=== PATIENT | male | born 1995 | race African-American/Black ===

== ENCOUNTER 2017-05-08 11:21 | Emergency (ER) | payer SELFPAY ==
--- NOTE | 2017-05-08 12:22 | ED ---
Skin Complaint - HPI Summary HPI Summary: 21 male presents with complaints of left buttock/rectal pain that began ~3 days ago. Patient states he had similar pain approximately 2 years ago when he had surgery on an abscess by Dr Robertson. Patient denies any new discharge besides the intermittent specks of blood he sometimes has when wiping, that he states is chronic. Patient admits to feeling a "cyst" and it is very tender to touch. It hurts when he sits down. No fever/chills or feeling of illness. Denies any other abscess or skin complaints. No trouble going to the bathroom besides it causes him pain. No PMHx. Has been taking ibuprofen with little relief. States pain has increased since it began 3 days ago. Denies history of MRSA. State when he palpates the area of pain, he feels his left upper leg goes slightly numb. - History of Current Complaint Chief Complaint: EDRashSkinAbscess Time Seen by Provider: 05/08/17 11:43 Stated Complaint: LT BUTTOCKS PAIN Hx Obtained From: Patient Onset/Duration: Started Days Ago, Still Present, Worse Since Skin Exposure Onset/Duration: Days Ago Timing: Constant Onset Severity: Moderate Current Severity: Moderate Pain Intensity: 7 Pain Scale Used: 0-10 Numeric Skin Location: Other: - left buttock, rectal area Character: Swelling, Pain, Redness Aggravating Symptom(s): Nothing Alleviating Symptom(s): Nothing Associated Signs & Symptoms: Negative - Allergy/Home Medications Allergies/Adverse Reactions: Allergies Allergy/AdvReac Type Severity Reaction Status Date / Time No Known Allergies Allergy Verified 05/08/17 11:33 PMH/Surg Hx/FS Hx/Imm Hx Endocrine/Hematology History: Denies: Hx Anticoagulant Therapy, Hx Diabetes, Hx Thyroid Disease Cardiovascular History: Denies: Hx Hypertension, Hx Pacemaker/ICD Respiratory History: Denies: Hx Asthma, Hx Chronic Obstructive Pulmonary Disease (COPD) GI History: Denies: Hx Ulcer, Other GI Disorders History: Denies: Hx Renal Disease, Other Problems/Disorders Sensory History: Reports: Hx Contacts or Glasses Denies: Hx Cataracts, Hx Glaucoma, Hx Hearing Aid Opthamlomology History: Reports: Hx Contacts or Glasses Denies: Hx Cataracts, Hx Glaucoma Neurological History: Denies: Hx Dementia, Hx Seizures Psychiatric History: Denies: Hx Substance Abuse - Cancer History Hx Chemotherapy: No - Surgical History Surgery Procedure, Year, and Place: Cyst removal left buttock Hx Anesthesia Reactions: No - Immunization History Immunizations Up to Date: Yes Infectious Disease History: No Infectious Disease History: Denies: Hx Clostridium Difficile, Hx Hepatitis, Hx Human Immunodeficiency Virus (HIV), Hx Shingles, Hx Tuberculosis, History Other Infectious Disease, Traveled Outside the [place] in Last 30 Days - Family History Known Family History: Positive: None - Social History Alcohol Use: Occasionally Substance Use Type: Reports: None Smoking Status (MU): Never Smoked Tobacco Type: Cigarettes Have You Smoked in the Last Year: No Review of Systems Constitutional: Negative Cardiovascular: Negative Respiratory: Negative Gastrointestinal: Negative Musculoskeletal: Negative Positive: Other - pain, cyst buttock All Other Systems Reviewed And Are Negative: Yes Physical Exam Triage Information Reviewed: Yes Vital Signs On Initial Exam: Initial Vitals Temp Pulse Resp BP Pulse Ox 98.1 F 67 16 152/82 98 05/08/17 11:33 05/08/17 11:33 05/08/17 11:33 05/08/17 11:33 05/08/17 11:33 Vital Signs Reviewed: Yes Appearance: Positive: Well-Appearing, Pain Distress - mild with changing positions Skin: Positive: Warm, Skin Color Reflects Adequate Perfusion, Dry, Erythema @ - at intergluteal cleft area on left side, superior. very tender to palpation, firm in areas, no drainage noted, appears to possibly be a fistula. scars noted in same area due to previous surgery 2 years ago. no significant surrounding cellulitis, or easily palpated abscess.. Negative: Jaundiced Head/Face: Positive: Normal Head/Face Inspection Eyes: Positive: Conjunctiva Clear ENT: Positive: Hearing grossly normal Neck: Positive: Supple, Nontender, No Lymphadenopathy Respiratory/Lung Sounds: Positive: Clear to Auscultation, Breath Sounds Present. Negative: Rales, Rhonchi, Wheezes Cardiovascular: Positive: Normal, RRR, Pulses are Symmetrical in both Upper and Lower Extremities. Negative: Murmur, Rub Abdomen Description: Positive: Nontender, Soft Bowel Sounds: Positive: Present Musculoskeletal: Positive: Normal, Strength/ROM Intact Neurological: Positive: Normal, Sensory/Motor Intact - sensation intact, Alert, Oriented to Person Place, Time, CN Intact II-III, Reflexes Intact, NV Bundle Intact Distally, Normal Gait Psychiatric: Positive: Affect/Mood Appropriate Diagnostics - Vital Signs Vital Signs Temp Pulse Resp BP Pulse Ox 05/08/17 11:47 98.1 F 67 16 152/82 98 05/08/17 11:33 98.1 F 67 16 152/82 98 - Laboratory Lab Statement: Any lab studies that have been ordered have been reviewed, and results considered in the medical decision making process. Course/Dx - Course Course Of Treatment: given naproxen for pain. held off on labs and imaging until spoke with surgery. no concern for sepsis at this time due to being afebrile and not feeling ill. symptoms just began PE findings do not appear to be of severity at this time. Due to location and prior consultation by Dr Robertson office had surgery consult, called Dr Hastings at 12:45pm. Feng HILTON determined patient should be placed on oral anitbioics and follow up in office tomorrow a 2:15, non surgical at this time. Aware of worsening signs and symptoms. Pain management and antibiotics at home. - Differential Diagnoses - Skin Complaint Differential Diagnoses: Abscess, Cellulitis, MRSA, Other - fistula, pionidal cyst - Diagnoses Provider Diagnoses: Cellulitis and abscess of buttock Discharge - Discharge Plan Condition: Stable Disposition: HOME Prescriptions: Cephalexin CAP* [Keflex CAP*] 500 mg PO TID #30 cap HYDROcodone/ACETAMIN 5-325 MG* [Canaan 5-325 TAB*] 1 tab PO Q4H PRN #10 tab MDD 3 PRN Reason: Pain Patient Education Materials: Cellulitis (ED), Pilonidal Cyst (ED), Rectal Abscess (ED), Warm Compress or Soak (ED) Referrals: Jo-Ann Can MD [Primary Care Provider] - Israel Hastings MD [Medical Doctor] - Additional Instructions: Apply warm compresses as often as possible. Be sure to keep clean and dry, avoid moisture. Take oral antibiotics and pain medication as directed. You can supplement with ibuprofen in between doses if desired. take with food and do not drive while taking narcotic. Follow up with surgery tomorrow at 2:15pm for evaluation. IF symptoms worsen or you develop worsening symptoms such as fever, drainage, feeling of illness etc, please seek medical attention promptly.
[2017-05-08] MEDS ORDERED: Naproxen TAB* 250 MG PO ONE (13:11)
[2017-05-08 13:57] VITALS: BP 127/77
== END 2017-05-08 13:57 | disposition home or self-care (01) ==
LOC: ED 11:21
DX: L02.31 Cutaneous abscess of buttock (principal); L03.90 Cellulitis, unspecified
CPT/HCPCS: 99282; A9270-GY

== ENCOUNTER 2017-10-02 13:26 | Emergency (ER) | payer SELFPAY ==
[2017-10-02 17:06] LABS: ABS Basophils 0 10^3/ul (0-0.2); ABS Eosinophils 0.4 10^3/ul (0-0.6); ABS Lymphocytes 2.4 10^3/ul (1.0-4.8); ABS Monocytes 0.5 10^3/ul (0-0.8); ABS Neutrophils 2.5 10^3/ul (1.5-7.7); ABS Nucleated RBC 0.01 10^3/ul; Eosinophil % 6.2 % (0-6); Hematocrit 45 % (42-52); Hemoglobin 15.1 g/dl (14.0-18.0); Mean Corpuscular HGB Conc 34 g/dl (31-36); Mean Corpuscular Hemoglobin 29 pg (27-31); Mean Corpuscular Volume 85 fL (80-94); Mean Platelet Volume 9 um3 (7.4-10.4); Nucleated Red Blood Cells % 0.1; Platelet Count 224 10^3/ul (150-450); Red Blood Count 5.24 10^6/ul (4.0-5.4); Red Cell Distribution Width 13 % (10.5-15); White Blood Count 5.8 10^3/ul (3.5-10.8)
[2017-10-02 17:12] LABS: INR 0.88 (0.77-1.02)
[2017-10-02 17:17] LABS: EGFR Non-African American 108.7 (>60)
--- NOTE | 2017-10-02 17:53 | ED ---
Headache - HPI Summary HPI Summary: 22M presents with generalized headache for past month. He states sleeping makes it better. He denies trying anything for his pain. He admits to light sensitive. pain is located in the front of his head. He has not seen his primary for this. nothing makes it worst. He states he is also concerned he has skin cancer. he states there is this line in his right thumb nail that has had for a month. He also admits to rash on hands. He states the rash gets better with cream. He denies any fever. He denies any sinus congestion. - History Of Current Complaint Chief Complaint: EDGeneral Stated Complaint: LINE ON RT THUMB Time Seen by Provider: 10/02/17 17:39 - Allergies/Home Medications Allergies/Adverse Reactions: Allergies Allergy/AdvReac Type Severity Reaction Status Date / Time No Known Allergies Allergy Verified 10/02/17 13:39 PMH/Surg Hx/FS Hx/Imm Hx Endocrine/Hematology History: Denies: Hx Anticoagulant Therapy, Hx Diabetes, Hx Thyroid Disease Cardiovascular History: Denies: Hx Hypertension, Hx Pacemaker/ICD Respiratory History: Denies: Hx Asthma, Hx Chronic Obstructive Pulmonary Disease (COPD) GI History: Denies: Hx Ulcer, Other GI Disorders History: Denies: Hx Renal Disease, Other Problems/Disorders Sensory History: Reports: Hx Contacts or Glasses Denies: Hx Cataracts, Hx Glaucoma, Hx Hearing Aid Opthamlomology History: Reports: Hx Contacts or Glasses Denies: Hx Cataracts, Hx Glaucoma Neurological History: Denies: Hx Dementia, Hx Seizures Psychiatric History: Denies: Hx Substance Abuse - Cancer History Hx Chemotherapy: No - Surgical History Surgery Procedure, Year, and Place: Cyst removal left buttock Hx Anesthesia Reactions: No Infectious Disease History: No Infectious Disease History: Denies: Hx Clostridium Difficile, Hx Hepatitis, Hx Human Immunodeficiency Virus (HIV), Hx Shingles, Hx Tuberculosis, History Other Infectious Disease, Traveled Outside the [place] in Last 30 Days - Family History Known Family History: Positive: None - Social History Alcohol Use: Occasionally Substance Use Type: Reports: None Smoking Status (MU): Never Smoked Tobacco Type: Cigarettes Have You Smoked in the Last Year: No Review of Systems Negative: Fever Negative: Chest Pain Negative: Shortness Of Breath Positive: Rash Positive: Headache All Other Systems Reviewed And Are Negative: Yes Physical Exam Triage Information Reviewed: Yes Vital Signs On Initial Exam: Initial Vitals Temp Pulse Resp BP Pulse Ox 99.0 F 74 18 171/96 98 10/02/17 13:30 10/02/17 13:30 10/02/17 13:30 10/02/17 13:30 10/02/17 13:30 Vital Signs Reviewed: Yes Appearance: Positive: Well-Appearing Skin: Positive: Warm, Dry, Other - dry skin present on bilateral hands, black line in nail of right thumb Head/Face: Positive: Normal Head/Face Inspection Eyes: Positive: Normal, Conjunctiva Clear Respiratory/Lung Sounds: Positive: Clear to Auscultation, Breath Sounds Present Cardiovascular: Positive: Normal, RRR Musculoskeletal: Positive: Normal Neurological: Positive: Sensory/Motor Intact, Alert, Oriented to Person Place, Time, CN Intact II-III Psychiatric: Positive: Normal Diagnostics - Vital Signs Vital Signs Temp Pulse Resp BP Pulse Ox 10/02/17 15:25 99.2 F 76 20 141/78 99 10/02/17 13:30 99.0 F 74 18 171/96 98 - Laboratory Lab Results: Lab Results 10/02/17 10/02/17 10/02/17 Range/Units 16:47 16:47 16:47 WBC 5.8 (3.5-10.8) 10^3/ul RBC 5.24 (4.0-5.4) 10^6/ul Hgb 15.1 (14.0-18.0) g/dl Hct 45 (42-52) % MCV 85 (80-94) fL MCH 29 (27-31) pg MCHC 34 (31-36) g/dl RDW 13 (10.5-15) % Plt Count 224 (150-450) 10^3/ul MPV 9 (7.4-10.4) um3 Neut % (Auto) 43.6 (38-83) % Lymph % (Auto) 41.0 (25-47) % Childress % (Auto) 8.4 (1-9) % Eos % (Auto) 6.2 H (0-6) % Baso % (Auto) 0.8 (0-2) % Absolute Neuts (auto) 2.5 (1.5-7.7) 10^3/ul Absolute Lymphs (auto) 2.4 (1.0-4.8) 10^3/ul Absolute Monos (auto) 0.5 (0-0.8) 10^3/ul Absolute Eos (auto) 0.4 (0-0.6) 10^3/ul Absolute Basos (auto) 0 (0-0.2) 10^3/ul Absolute Nucleated RBC 0.01 10^3/ul Nucleated RBC % 0.1 INR (Anticoag Therapy) 0.88 (0.77-1.02) Sodium 136 (133-145) mmol/L Potassium TNP Chloride 101 (101-111) mmol/L Carbon Dioxide 29 (22-32) mmol/L Anion Gap 6 (2-11) mmol/L BUN 13 (6-24) mg/dL Creatinine 0.87 (0.67-1.17) mg/dL Est GFR ( Amer) 139.9 (>60) Est GFR (Non-Af Amer) 108.7 (>60) BUN/Creatinine Ratio 14.9 (8-20) Glucose 102 H (70-100) mg/dL Lactic Acid (0.5-2.0) mmol/L Calcium 9.5 (8.6-10.3) mg/dL Magnesium 2.1 (1.9-2.7) mg/dL Total Bilirubin 0.40 (0.2-1.0) mg/dL AST TNP ALT 37 (7-52) U/L Alkaline Phosphatase 47 (34-104) U/L C-Reactive Protein 3.78 (< 5.00) mg/L Total Protein 7.9 (6.4-8.9) g/dL Albumin 4.5 (3.2-5.2) g/dL Globulin 3.4 (2-4) g/dL Albumin/Globulin Ratio 1.3 (1-3) 10/02/17 Range/Units 16:47 WBC (3.5-10.8) 10^3/ul RBC (4.0-5.4) 10^6/ul Hgb (14.0-18.0) g/dl Hct (42-52) % MCV (80-94) fL MCH (27-31) pg MCHC (31-36) g/dl RDW (10.5-15) % Plt Count (150-450) 10^3/ul MPV (7.4-10.4) um3 Neut % (Auto) (38-83) % Lymph % (Auto) (25-47) % Childress % (Auto) (1-9) % Eos % (Auto) (0-6) % Baso % (Auto) (0-2) % Absolute Neuts (auto) (1.5-7.7) 10^3/ul Absolute Lymphs (auto) (1.0-4.8) 10^3/ul Absolute Monos (auto) (0-0.8) 10^3/ul Absolute Eos (auto) (0-0.6) 10^3/ul Absolute Basos (auto) (0-0.2) 10^3/ul Absolute Nucleated RBC 10^3/ul Nucleated RBC % INR (Anticoag Therapy) (0.77-1.02) Sodium (133-145) mmol/L Potassium Chloride (101-111) mmol/L Carbon Dioxide (22-32) mmol/L Anion Gap (2-11) mmol/L BUN (6-24) mg/dL Creatinine (0.67-1.17) mg/dL Est GFR ( Amer) (>60) Est GFR (Non-Af Amer) (>60) BUN/Creatinine Ratio (8-20) Glucose (70-100) mg/dL Lactic Acid 1.1 (0.5-2.0) mmol/L Calcium (8.6-10.3) mg/dL Magnesium (1.9-2.7) mg/dL Total Bilirubin (0.2-1.0) mg/dL AST ALT (7-52) U/L Alkaline Phosphatase (34-104) U/L C-Reactive Protein (< 5.00) mg/L Total Protein (6.4-8.9) g/dL Albumin (3.2-5.2) g/dL Globulin (2-4) g/dL Albumin/Globulin Ratio (1-3) Result Diagrams: 10/02/17 16:47 10/02/17 17:31 Lab Statement: Any lab studies that have been ordered have been reviewed, and results considered in the medical decision making process. Headache Course/Dx - Course Course Of Treatment: 22M presents with generalized headache for past month. He states sleeping makes it better. He denies trying anything for his pain. He admits to light sensitive. pain is located in the front of his head. He has not seen his primary for this. nothing makes it worst. He states he is also concerned he has skin cancer. he states there is this line in his right thumb nail that has had for a month. He also admits to rash on hands. He states the rash gets better with cream. He denies any fever. He denies any sinus congestion. on exam normal neuro exam. has dry skin on hands. has black strip like lesion in right thumb nail. patient refused CT. labs normal. will have follow up with dermatology about skin compliant. nail could be foreign body? told to follow up with primary about headaches and to take ibuprofen. patient understand and agrees with plan. - Diagnoses Differential Diagnosis/HQI/PQRI: Migraine, Tension Headache, Viral Syndrome, Other - ezcema Provider Diagnoses: Headache, Dry skin, Nail lesion Discharge - Discharge Plan Condition: Good Disposition: HOME Prescriptions: Ibuprofen TAB* [Motrin TAB* 600 MG] 600 mg PO Q6H PRN #16 tab PRN Reason: Pain Patient Education Materials: General Headache (ED) Forms: *Work Release Referrals: Jo-Ann Can MD [Primary Care Provider] - James Montemayor MD [Medical Doctor] - Additional Instructions: Apply cream to hands Follow up with dermatology Follow up with primary about headaches Take ibuprofen or Tylenol every 6 hours Return to ED if develop any new or worsening symptoms
[2017-10-02 18:14] VITALS: BP 156/79
== END 2017-10-02 18:13 | disposition home or self-care (01) ==
LOC: ED 13:26
DX: R51 Headache (principal); R21 Rash and other nonspecific skin eruption; L85.3 Xerosis cutis; L60.8 Other nail disorders
CPT/HCPCS: 36415; 80053; 83605; 83735; 85025; 85610; 86140; 99282

== ENCOUNTER 2017-12-19 22:12 | Emergency (ER) | payer SELFPAY ==
[2017-12-20] MEDS ORDERED: metroNIDAZOLE TAB* 250 MG PO ONE (00:14)
[2017-12-20] MEDS ORDERED: cefTRIAXone VIAL(*) 250 MG VIAL IM ONE (00:14)
[2017-12-20] MEDS ORDERED: Azithromycin TAB* 250 MG PO ONE (00:14)
[2017-12-20] MEDS ORDERED: Lidocaine 1%* 5 ML VIAL ONE (00:21)
--- NOTE | 2017-12-20 00:36 | ED ---
GI/ HPI - HPI Summary HPI Summary: Patient here for STD treatment. He reports his girlfriend called him tonight to tell him she was diagnosed with gonorrhea and chlamydia and possibly another infection. He reports he is monogamous with this one partner and has been for the past 4 years. They do not use condoms. He denies any symptoms of dysuria, penile irritation, redness, sores, discharge, testicular/pain/swelling or tenderness as well as fevers, chills, abdominal pain, flank pain, nausea, vomiting, diarrhea. He does admit he has had other partners in his past however it's "been a while" and he does not recall having previous STD in the past. He declines testing tonight for gonorrhea and chlamydia and also for other screening tests such as HIV, hepatitis, syphilis, etc. - History of Current Complaint Chief Complaint: EDUrogenitalProblems Time Seen by Provider: 12/19/17 23:42 Stated Complaint: NEEDS BLOOD TEST Hx Obtained From: Patient Pain Intensity: 0 - Allergy/Home Medications Allergies/Adverse Reactions: Allergies Allergy/AdvReac Type Severity Reaction Status Date / Time No Known Allergies Allergy Verified 12/19/17 22:23 PMH/Surg Hx/FS Hx/Imm Hx Previously Healthy: Yes Endocrine/Hematology History: Denies: Hx Anticoagulant Therapy, Hx Diabetes, Hx Thyroid Disease Cardiovascular History: Denies: Hx Hypertension, Hx Pacemaker/ICD Respiratory History: Denies: Hx Asthma, Hx Chronic Obstructive Pulmonary Disease (COPD) GI History: Denies: Hx Ulcer, Other GI Disorders History: Denies: Hx Renal Disease, Other Problems/Disorders Musculoskeletal History: Reports: Hx Back Problems - from playing football - no tx Sensory History: Reports: Hx Contacts or Glasses Denies: Hx Cataracts, Hx Glaucoma, Hx Hearing Aid Opthamlomology History: Reports: Hx Contacts or Glasses Denies: Hx Cataracts, Hx Glaucoma Neurological History: Denies: Hx Dementia, Hx Seizures Psychiatric History: Denies: Hx Substance Abuse - Cancer History Hx Chemotherapy: No - Surgical History Surgery Procedure, Year, and Place: Cyst removal left buttock Hx Anesthesia Reactions: No Infectious Disease History: No Infectious Disease History: Denies: Hx Clostridium Difficile, Hx Hepatitis, Hx Human Immunodeficiency Virus (HIV), Hx Shingles, Hx Tuberculosis, History Other Infectious Disease, Traveled Outside the [place] in Last 30 Days - Family History Known Family History: Positive: None - Social History Occupation: Employed Full-time - [place] Lives: With Family - mom Alcohol Use: Weekly Hx Substance Use: No - "I'm around marijuana but I don't smoke" Substance Use Type: Reports: None Hx Tobacco Use: No Smoking Status (MU): Never Smoked Tobacco Type: Cigarettes Have You Smoked in the Last Year: No Review of Systems Constitutional: Negative Eyes: Negative ENT: Negative Cardiovascular: Negative Respiratory: Negative Gastrointestinal: Negative Positive: see HPI Musculoskeletal: Negative Skin: Negative Neurological: Negative Psychological: Normal All Other Systems Reviewed And Are Negative: Yes Physical Exam Triage Information Reviewed: Yes Vital Signs On Initial Exam: Initial Vitals Temp Pulse Resp BP Pulse Ox 98.7 F 68 16 170/97 97 12/19/17 22:19 12/19/17 22:19 12/19/17 22:19 12/19/17 22:19 12/19/17 22:19 Vital Signs Reviewed: Yes Appearance: Positive: Well-Appearing, No Pain Distress, Well-Nourished Skin: Positive: Warm, Skin Color Reflects Adequate Perfusion, Dry Head/Face: Positive: Normal Head/Face Inspection Eyes: Positive: Normal, EOMI, Conjunctiva Clear ENT: Positive: Normal ENT inspection, Hearing grossly normal, Pharynx normal Respiratory/Lung Sounds: Positive: Breath Sounds Present Cardiovascular: Positive: Normal, RRR Abdomen Description: Positive: Nontender, Soft Male Genital Exam: Positive: normal genitalia. Negative: epididymal tenderness , lesions, testicular tenderness (R), testicular tenderness (L), urethral discharge Musculoskeletal: Positive: Normal, Strength/ROM Intact Neurological: Positive: Normal, Sensory/Motor Intact, Alert, Oriented to Person Place, Time, CN Intact II-III Psychiatric: Positive: Anxious Diagnostics - Vital Signs Vital Signs Temp Pulse Resp BP Pulse Ox 12/19/17 22:19 98.7 F 68 16 170/97 97 - Laboratory Lab Statement: Any lab studies that have been ordered have been reviewed, and results considered in the medical decision making process. GIGU Course/Dx - Course Course Of Treatment: Will tx pt for all STD's including gonorrhea, chalmydia and other infection he's unsure of (could be BV, trichomonas) - denies this is HIV, Hep, Syphilis. Pt agrees to take all medications and adhere to close f/u for restesting. Strongly urged patient to avoid sexual activity until he is retested to confirm treatment and encouraged use of condoms in the future to prevent infection. Also advised patient to notify any other partners that he may have been exposed to that they to may be tested and treated. Danger signs and symptoms reviewed. Patient declined further testing this evening and is aware of where to go to get this testing if he so wishes. - Diagnoses Provider Diagnoses: Exposure to STD Discharge - Sign-Out/Discharge Documenting (check all that apply): Discharge - Discharge Plan Condition: Stable Disposition: HOME Prescriptions: metroNIDAZOLE [Flagyl 500 MG TAB] 500 mg PO BID #28 tab Patient Education Materials: Chlamydia (ED), Sexually Transmitted Diseases (ED) , Safe Sex (ED), Gonorrhea (ED) Referrals: Jo-Ann Can MD [Primary Care Provider] - Additional Instructions: Complete antibiotics as directed. Abstain from sexual intercourse until completing medications and get retested for infections to confirm completed treatment. If you engage in unprotected intercourse prior to retesting and you still have infection, you may pass this to other people. It is also encouraged that you notify any other partners that he/she may have been exposed to STD(s) so that he/she may be tested and treated. This may be done through your primary care physician, [facility] and/or the [facility] department. Please call tomorrow to schedule an appointment for follow-up care as directed. *If in the meantime you develop fever, chills, chest pain, abdominal pain, penile discharge, penile burning, testicular pain or swelling, flank pain, return to the emergency department - Billing Disposition and Condition Condition: STABLE Disposition: HOME
[2017-12-20 01:08] VITALS: BP 157/92
== END 2017-12-20 01:08 | disposition home or self-care (01) ==
LOC: ED 22:12
DX: Z20.2 Contact with and (suspected) exposure to infections with a predominantly sexual mode of transmission (principal)
CPT/HCPCS: 96372; 99282; A9270-GY; J0696

== ENCOUNTER 2019-12-12 20:44 | Emergency (ER) | payer SELFPAY ==
[2019-12-12] MEDS ORDERED: Acetaminophen TAB* 325 MG PO ONE (21:15)
[2019-12-12 21:30] LABS: Influenza A Molecular POSITIVE (Negative)
--- NOTE | 2019-12-12 22:02 | ED ---
Influenza-Like Illness - HPI Summary HPI Summary: Patient is a 24 year-old male presenting to [facility] with a chief complaint of flu- like symptoms onset two days ago and worsening today. At initial onset on 2019, he began suffering from a headache and cough. Today, his symptoms progressed with a fever, chills, body aches, and mild shortness of breath. He has been taking OTC flu medications without resolution of his symptoms. Pain is rated 8/10 in severity. No past medical history. Nonsmoker, weekly alcohol use, no substance use. Medications reviewed. Allergies noted. - History of Current Complaint Chief Complaint: EDFluSymptoms Time Seen by Provider: 12/12/19 21:34 Hx Obtained From: Patient Onset/Duration: Gradual Onset, Lasting Days - two, Still Present, Worse Since - today Severity: Moderate Associated Signs & Symptoms: Fever, Myalgia, Cough, Headache - Allergy/Home Medications Allergies/Adverse Reactions: Allergies Allergy/AdvReac Type Severity Reaction Status Date / Time No Known Allergies Allergy Verified 01/05/18 06:29 Home Medications: Home Medications Ibuprofen TAB* [Motrin TAB* 600 MG] 600 mg PO Q6H PRN #16 tab 10/02/17 [Rx Confirmed 01/05/18] metroNIDAZOLE [Flagyl 500 MG TAB] 500 mg PO BID #28 tab 12/20/17 [Rx Confirmed 01/05/18] Oseltamivir CAP* [Tamiflu CAP*] 75 mg PO BID #10 cap 12/12/19 [Rx] PMH/Surg Hx/FS Hx/Imm Hx Endocrine/Hematology History: Denies: Hx Anticoagulant Therapy, Hx Diabetes, Hx Thyroid Disease Cardiovascular History: Denies: Hx Hypertension, Hx Pacemaker/ICD Respiratory History: Denies: Hx Asthma, Hx Chronic Obstructive Pulmonary Disease (COPD) GI History: Denies: Hx Ulcer, Other GI Disorders History: Denies: Hx Renal Disease, Other Problems/Disorders Musculoskeletal History: Reports: Hx Back Problems - from playing football - no tx Sensory History: Reports: Hx Contacts or Glasses Denies: Hx Cataracts, Hx Glaucoma, Hx Hearing Aid Opthamlomology History: Reports: Hx Contacts or Glasses Denies: Hx Cataracts, Hx Glaucoma Neurological History: Denies: Hx Dementia, Hx Seizures Psychiatric History: Denies: Hx Eating Disorder, Hx of Violent Episodes Against Others, Hx Substance Abuse - Cancer History Hx Chemotherapy: No - Surgical History Surgical History: Yes Surgery Procedure, Year, and Place: Cyst removal left buttock Hx Anesthesia Reactions: No Infectious Disease History: No Infectious Disease History: Denies: Hx Clostridium Difficile, Hx Hepatitis, Hx Human Immunodeficiency Virus (HIV), Hx Shingles, Hx Tuberculosis, History Other Infectious Disease, Traveled Outside the in Last 30 Days - [place] - Family History Known Family History: Positive: Hypertension, Other - denies depression - Social History Alcohol Use: Weekly Hx Substance Use: No - "I'm around marijuana but I don't smoke" Substance Use Type: Reports: None Hx Tobacco Use: No Smoking Status (MU): Never Smoked Tobacco Have You Smoked in the Last Year: No - Additional Comments History Additional Comments: no past medical history Review of Systems - ROS Summary Review of Systems Summary: Home Medications Medication Instructions Recorded Confirmed Type Ibuprofen TAB* [Motrin TAB* 600 MG] 600 mg PO Q6H PRN #16 tab 10/02/17 01/05/18 Rx metroNIDAZOLE [Flagyl 500 MG TAB] 500 mg PO BID #28 tab 12/20/17 01/05/18 Rx Oseltamivir CAP* [Tamiflu CAP*] 75 mg PO BID #10 cap 12/12/19 Rx Positive: Fever, Chills Positive: Shortness Of Breath, Cough Positive: Myalgia Positive: Headache All Other Systems Reviewed And Are Negative: Yes Physical Exam - Summary Physical Exam Summary: General: Mildly ill-appearing, Well-developed, Well-nourished male. No acute distress. HEENT: Normocephalic, Atraumatic. Eyes: Conjuctiva normal, PERRL. Oropharynx: Erythematous, mucous membranes moist, (-) exudates. Neck: Soft, FROM, (-) lymphadenopathy, (-) thyromegaly, (-) JVD. Cardiovascular: Normal sinus rhythm, (-) murmur. Lungs: Transmitted upper airway noises, (-) wheezes, (-) rales, (-) rhonchi. Abdomen: Soft, non-tender, non-distended, (-) organomegaly, normal bowel sounds. Back: (-) CVA tenderness Extremities: No edema. Skin: Warm, dry, (-) rash. Neuro: Alert and oriented x3, moves all extremities equally. No ataxia. No gait disturbance. No sensory deficit. Normal strength, normal sensation. Psychiatric: Mood normal, affect normal. Triage Information Reviewed: Yes Vital Signs On Initial Exam: Initial Vitals Temp Pulse Resp BP Pulse Ox 101.9 F 121 20 154/104 97 12/12/19 20:49 12/12/19 20:49 12/12/19 20:49 12/12/19 20:49 12/12/19 20:49 Vital Signs Reviewed: Yes Procedures - Sedation Patient Received Moderate/Deep Sedation with Procedure: No Diagnostics - Vital Signs Vital Signs Temp Pulse Resp BP Pulse Ox 12/12/19 20:49 101.9 F 121 20 154/104 97 - Laboratory Lab Results: Lab Results 12/12/19 Range/Units 21:00 Influenza A (Rapid) Positive H (Negative) Influenza B (Rapid) Not Reportable Lab Statement: Any lab studies that have been ordered have been reviewed, and results considered in the medical decision making process. Re-Evaluation - Re-Evaluation First Eval Re-Evaluation Time: 22:00 Change: Improved Comment: Flu positive. I discussed all results. Fever has resolved. Discussed all symptoms that warrant return to the ED. Flu Symptom Course/Dx - Course Course Of Treatment: 24-year-old male presents with 2 day history of headache sore throat cough. Fever started today. Taking [id number] medications for his symptoms. No vomiting or diarrhea. Complains of severe body aches and fatigue. On physical exam he is mildly ill-appearing. His workup is positive for influenza A. Patient given Tylenol and Tamiflu. Discharged to home. Off work for 7 days total. Advised plenty fluids and rest Tylenol ibuprofen as needed. Tamiflu 5 days. Follow-up with PCP. Follow-up sooner if any worsening symptoms. Patient administered Tylenol for fever. Patient started on Tamiflu in the ED. - Diagnoses Provider Diagnoses: Influenza A Discharge ED - Sign-Out/Discharge Documenting (check all that apply): Patient Departure - Patient will be discharged home. - Discharge Plan Condition: Stable Disposition: HOME Prescriptions: Oseltamivir CAP* [Tamiflu CAP*] 75 mg PO BID #10 cap Patient Education Materials: Influenza (DC) Forms: *Work Release Referrals: [facility] [Outside] - 1 Week Additional Instructions: Please take Tamiflu as prescribed. Follow up with your primary care provider in one week. Return to the emergency department for any new or worsening symptoms. - Billing Disposition and Condition Condition: STABLE Disposition: Home - Attestation Statements Document Initiated by Dagmar: Yes Documenting Scribe: Beba Elena Provider For Whom Dagmar is Documenting (Include Credential): Caroline Curtis MD Scribe Attestation: Beba Marie, scribed for Caroline Curtis MD on 12/13/19 at 0039. Scribe Documentation Reviewed: Yes Provider Attestation: The documentation as recorded by the Beba dejesus accurately reflects the service I personally performed and the decisions made by me, Caroline Curtis MD Status of Scribe Document: Viewed
[2019-12-12] MEDS ORDERED: Oseltamivir CAP* 75 MG CAP PO ONE (22:03)
[2019-12-12 22:35] VITALS: BP 135/86
== END 2019-12-12 22:25 | disposition home or self-care (01) ==
LOC: ED 20:44
DX: J10.1 Influenza due to other identified influenza virus with other respiratory manifestations (principal)
CPT/HCPCS: 99283; A9270-GY